=== PATIENT | male | born 1945 | race Hispanic/Latino ===

== ENCOUNTER 2019-06-28 05:34 | Day surgery (SDC) | payer MEDICARE ==
[2019-06-24 09:52] LABS: BASOPHILS % (AUTO) 0.5 % (0.0-5.0); EOSINOPHILS % (AUTO) 2.1 % (0.0-8.0); HEMATOCRIT 41.9 % (42-54); LYMPHOCYTES % (AUTO) 24.8 % (21.0-51.0); MEAN CORPUSCULAR HEMOGLOBIN 31.1 pg (27.0-33.0); MEAN CORPUSCULAR HGB CONC 33.9 g/dL (32.0-36.0); MEAN CORPUSCULAR VOLUME 91.7 fL (79-99); MONOCYTES % (AUTO) 6.8 % (3.0-13.0); NEUTROPHILS % (AUTO) 65.3 % (40.0-77.0); PLATELET COUNT (AUTO) 233 K/uL (130-400); RED BLOOD CELL COUNT(AUTO) 4.57 MIL/uL (4.50-6.20); RED CELL DISTRIBUTION WIDTH 12.1 % (11.0-15.5); WHITE BLOOD COUNT (AUTO) 8.4 K/uL (4.8-10.8)
[2019-06-24 10:04] LABS: CREATININE 0.8 mg/dL (0.5-1.5); POTASSIUM 3.8 mmol/L (3.5-5.1)
[2019-06-24 10:12] LABS: INR 0.91 (0.85-1.15); PARTIAL THROMBOPLASTIN TIME 27.7 SEC (26.3-35.5); PROTHROMBIN TIME 9.6 SEC (9.6-11.6)
[2019-06-24 10:18] VITALS: BP 172/75
[2019-06-24 11:04] LABS: APPEARANCE,URINE Clear (CLEAR); BILIRUBIN,URINE Negative (NEGATIVE); COLOR,URINE Yellow (YELLOW); GLUCOSE, URINE (UA) Negative (NEGATIVE); KETONES,URINE Negative (NEGATIVE); LEUKOCYTE ESTERASE ,URINE Trace (NEGATIVE); NITRATE,URINE Negative (NEGATIVE); OCCULT BLOOD,URINE Negative (NEGATIVE); PH,URINE 5.5 (5.0-8.0); PROTEIN,URINE Negative (NEGATIVE); UROBILINOGEN,URINE 0.2 mg/dL (0.2-1.0)
[2019-06-24 11:43] LABS: BACTERIA,URINE Rare /HPF (None Seen); RBC,URINE 0-1 /HPF (0-1); SQUAMOUS EPITHELIAL CELL,UR Rare /HPF (0-2); WBC,URINE 0-1 /HPF (0-1)
--- NOTE | 2019-06-25 15:20 | NUR ---
RE: ABNORMAL CHEST XRAY REPORTED ABNORMAL CHEST XRAY TO GRICEL KOO. RECEIVED ORDERS FOR REPEAT CBC IN THE MORNING OF PROCEDURE.
[2019-06-28] VITALS (9 sets, daily range): BP systolic 112–142; BP diastolic 64–73
[~2019-06-28] VITALS: Ht 170.2 cm; Wt 102.0 kg
[~2019-06-28 05:34] MED LIST: AMLO10TA7 PO; ASPI-1181 PO; FENO145T26 PO; GABA-529 PO; ISOS30TA6 PO; METF-444 PO; SIMV-43 PO
[2019-06-28 06:27] LABS: BASOPHILS % (AUTO) 0.4 % (0.0-5.0); EOSINOPHILS % (AUTO) 2.9 % (0.0-8.0); HEMATOCRIT 40.6 % (42-54); LYMPHOCYTES % (AUTO) 25.5 % (21.0-51.0); MEAN CORPUSCULAR HGB CONC 34.5 g/dL (32.0-36.0); MONOCYTES % (AUTO) 6.1 % (3.0-13.0); NEUTROPHILS % (AUTO) 64.9 % (40.0-77.0); PLATELET COUNT (AUTO) 220 K/uL (130-400); RED BLOOD CELL COUNT(AUTO) 4.51 MIL/uL (4.50-6.20); RED CELL DISTRIBUTION WIDTH 12.1 % (11.0-15.5); WHITE BLOOD COUNT (AUTO) 8.1 K/uL (4.8-10.8)
[2019-06-28] MEDS ORDERED: BIVALIRUDIN 250 MG/VIAL IV ONE (07:18)
[2019-06-28] MEDS ORDERED: FENTANYL CITRATE PF 50 MCG/1 ML 2ML VIAL ONE (07:19)
[2019-06-28] MEDS ORDERED: NITROGLYCERIN 5 MG/ML 10 ML VIAL IV ONE (07:19)
[2019-06-28] MEDS ORDERED: MIDAZOLAM HCL 1 MG/ML 2ML VIAL ONE (07:19)
[2019-06-28] MEDS ORDERED: IOHEXOL-350 50ML VIAL IV ONE (07:19)
[2019-06-28] MEDS ORDERED: LIDOCAINE HCL 2% 20ML ONE (07:19)
[2019-06-28] MEDS ORDERED: IOHEXOL 350 MG/ML 100ML INFUS..BTL IV ONE (07:19)
[2019-06-28] MEDS ORDERED: HEPARIN SODIUM 1000UNIT/ML 10ML VIAL ONE (08:10)
[2019-06-28] MEDS ORDERED: GLUCAGON 1MG KIT 1 MG ML IM PRN (08:30)
[2019-06-28] MEDS ORDERED: DEXTROSE 50%-WATER 50 ML DISP.SYRIN IV PRN (08:30)
[2019-06-28] MEDS ORDERED: METOPROLOL TARTRATE 1 MG/ML 5ML VIAL IV PRN (08:30)
[2019-06-28] MEDS ORDERED: NITROGLYCERIN 0.4 MG SL TAB SL PRN (08:30)
[2019-06-28] MEDS ORDERED: SODIUM CHLORIDE 0.9% 1000ML 1,000 ML IV SCH (09:55)
[2019-06-28] MEDS ORDERED: INSULIN HUMULIN R 100 UNIT/ML 3ML SQ SCH (11:30)
--- NOTE | 2019-06-28 12:45 | NUR ---
REPORT RECEIVED REPORT FROM APURVA CAGLE TO RESUME CARE OF PATIENT
--- NOTE | 2019-06-28 14:25 | NUR ---
dc pt dc home via wc,no distress noted. pt denied any pain or discomforts. pt accompanied by spouse. right groin with dressing dry and intact. no bleeding or hematoma to site.
== END 2019-06-28 14:25 | disposition home or self-care (01) ==
LOC: DAH 05:34 → EDSTATUS 09:00 → DAH 14:25
PROVIDERS: ATTEND Internal Medicine Cardiovascular Disease
DX: I35.0 Nonrheumatic aortic (valve) stenosis (principal); I25.10 Atherosclerotic heart disease of native coronary artery without angina pectoris; E11.9 Type 2 diabetes mellitus without complications; I11.9 Hypertensive heart disease without heart failure; E78.2 Mixed hyperlipidemia; M85.80 Other specified disorders of bone density and structure, unspecified site; F17.210 Nicotine dependence, cigarettes, uncomplicated; E66.9 Obesity, unspecified; Z68.35 Body mass index [BMI] 35.0-35.9, adult; Z79.82 Long term (current) use of aspirin; Z79.01 Long term (current) use of anticoagulants; Z79.899 Other long term (current) drug therapy; Z95.1 Presence of aortocoronary bypass graft; Z82.49 Family history of ischemic heart disease and other diseases of the circulatory system; Z82.5 Family history of asthma and other chronic lower respiratory diseases
CPT/HCPCS: 36415 ×2; 71045; 80048; 81001; 82948 ×2; 85025 ×2; 85610; 85730; 93005; 93460; A4215; A4216; A4221; A4222; A4223 ×3; A4606; A4663; C1760; C1769; C1894 ×3; J1644 ×2; J2250; J3010; J3490 ×2; Q9965; Q9967 ×2; 99156; 99157; J0583

== ENCOUNTER → 2024-10-27 | Outpatient (CLI) | payer OTHER, MEDICAID ==
[~2024-10-27] MED LIST changes: +AMLO-258 PO; -AMLO10TA7 PO; -ASPI-1181 PO; +ASPI-1443 PO; +IOHEXOL 350 MG/ML 100ML INFUS..BTL IV ONE; -ISOS30TA6 PO; +ISOS30TA92 PO
--- NOTE | 2024-10-27 11:59 | HMCIMG ---
Exam Type: CT angiogram chest, abdomen and pelvis and proximal lower extremities with contrast Technique: Routine helical scanning at 5mm collimation through the chest, abdomen and pelvis after contrast administration. In addition, sagittal and coronary formations of the abdomen pelvis and surface rendering three-dimensional reconstructions of the abdominal aorta and the bilateral lower extremity arterial system were performed. Volumetric spin and MIP rendering of the abdominal aorta and the lower extremity arterial system is done bilaterally as well. Findings: The bolus is of good quality for diagnosis of pulmonary embolism. There are no pulmonary arterial filling defects. The lung parenchyma is normal. No pleural effusion.. The central airways are widely patent. There is no axillary, mediastinal or hilar adenopathy. The heart and great vessels opacify normally. Review of bone windows demonstrates no osteoblastic or lytic lesions. The kidneys are unremarkable. No evidence of nephro or ureterolithiasis is found. No hydronephrosis or ureteral dilatation is seen. The liver is unremarkable. It shows no focal masses. The spleen shows normal size and attenuation. It is not enlarged. The pancreas shows normal appearance without masses, atrophy, or calcifications, or duct prominence. There is no peripancreatic fluid. The gallbladder is unremarkable. It shows no calculi. There is no pericholecystic stranding. The gallbladder wall is not thickened. The adrenals are normal. No masses are seen. The small and large bowel and pelvic viscera are unremarkable except for diverticulosis of the sigmoid without acute inflammation. The appendix is unremarkable. There is no retroperitoneal lymphadenopathy or lymphadenopathy elsewhere throughout the abdomen and pelvis. The aorta and inferior vena cava and other vascular structures are unremarkable. The bony structures unremarkable for the patient's age. The abdominopelvic wall soft tissue structures and muscular compartments are unremarkable. The axial examination of both lower extremities is unremarkable. There are no fractures or dislocations. No soft tissue tumor or inflammation is identified. There are no fluid collections or masses. There are no areas of bone destruction to suggest osteomyelitis. Aortic valve calcifications are seen. There is no aortic aneurysm. There is no dissection. There is no occlusion. There is no rupture. After contrast administration, there is no abnormal enhancement. IMPRESSION: Calcification of the aortic valve as noted.
== END | disposition home or self-care (01) ==
LOC: RAH 10:01
PROVIDERS: ATTEND Internal Medicine Cardiovascular Disease
DX: K57.30 Diverticulosis of large intestine without perforation or abscess without bleeding (principal); I35.1 Nonrheumatic aortic (valve) insufficiency; I35.0 Nonrheumatic aortic (valve) stenosis
CPT/HCPCS: 74174; 75574; Q9967